=== PATIENT | female | born 1990 | race African-American/Black ===

== ENCOUNTER 2019-05-07 06:18 | Inpatient (IN) ==
[2019-05-07 06:40] VITALS: BMI 34.0
[2019-05-07] MEDS ORDERED: NS 1000 ML 1,000 ML ONE (07:05)
[2019-05-07] MEDS ORDERED: ANCEF VIAL 1 GRAM ONE (07:08)
[2019-05-07] MEDS ORDERED: NS 100 ML IV + SPIKE MINIBAG* 100 ML IV ONE (07:08)
[2019-05-07] MEDS ORDERED: LR 1000 ML IV 1,000 ML IV ONE (07:26)
[2019-05-07] MEDS ORDERED: D5 1/2 NS 1L W PITOCIN 20 UNITS/L 20 UNITS/1,000 ML BAG IV ONE (07:27)
[2019-05-07] MEDS ORDERED: DILAUDID INJ ONE (07:27)
[2019-05-07] MEDS ORDERED: ANCEF VIAL 1 GRAM IVP ONE (07:35)
[2019-05-07 07:37] LABS: BASOPHILS # (AUTO) 0.1 X10^3/uL (0.0-0.1); BASOPHILS % (AUTO) 0.6 % (0.2-1.0); EOSINOPHILS % (AUTO) 0.1 % (0.9-2.9); HEMATOCRIT 40.2 % (36.0-47.0); HEMOGLOBIN 13.9 g/dL (12.0-16.0); LYMPHOCYTES # (AUTO) 1.1 X10^3/uL (1.3-2.9); LYMPHOCYTES % (AUTO) 9.6 % (21.0-51.0); MEAN CORPUSCULAR HEMOGLOBIN 27.5 pg (27.0-34.0); MEAN CORPUSCULAR HGB CONC 34.7 g/dL (33.0-35.0); MEAN CORPUSCULAR VOLUME 79.3 fL (80.0-100.0); MEAN PLATELET VOLUME 8.7 fL (7.4-11.0); MONOCYTES # (AUTO) 1.1 x10^3/uL (0.3-0.8); MONOCYTES % (AUTO) 9.8 % (0.0-13.0); NEUTROPHILS # (AUTO) 9.1 x10^3/uL (2.2-4.8); NEUTROPHILS % (AUTO) 79.9 % (42.0-75.0); PLATELET COUNT 158 X10^3/uL (150.0-450.0); RED BLOOD COUNT 5.07 X10^6/uL (3.5-5.4); RED CELL DISTRIBUTION WIDTH 14.8 % (11.6-16.5); WHITE BLOOD COUNT 11.3 X10^3/uL (3.6-10.0)
[2019-05-07] MEDS ORDERED: XYLOCAINE 1 % (PLAIN) ONE (07:48)
[2019-05-07 07:51] LABS: ALANINE AMINOTRANSFERASE 9 Units/L (12-78); ALBUMIN 2.6 g/dL (3.4-5.0); ALKALINE PHOSPHATASE 191 Units/L (46-116); ASPARTATE AMINO TRANSFERASE 21 Units/L (15-37); BLOOD UREA NITROGEN 4 mg/dL (7-18); CALCIUM 9.3 mg/dL (8.5-10.1); CARBON DIOXIDE 19.2 mmol/L (21-32); CHLORIDE 102 mmol/L (98-107); COR CA(FOR HYPOALB) 10.4 mg/dL (8.5-10.1); CREATININE 0.61 mg/dL (0.55-1.02); SODIUM 136 mmol/L (136-145); TOTAL PROTEIN 8.2 g/dL (6.4-8.2); eGFR NON BLACK RACES > 60 (>60)
[2019-05-07 08:52] LABS: BILIRUBIN,URINE NEGATIVE (NEGATIVE); BLOOD/HEMOGLOBIN,URINE 1+ (NEGATIVE); GLUCOSE, URINE NEGATIVE (NEGATIVE); KETONES,URINE 4+ (NEGATIVE); LEUKOCYTE ESTERASE ,URINE NEGATIVE (NEGATIVE); NITRITES,URINE NEGATIVE (NEGATIVE); PH,URINE 6.5 (5.0 - 8.0); PROTEIN,URINE NEGATIVE (NEGATIVE); UROBILINOGEN,URINE NORMAL (NORMAL)
[2019-05-07 09:03] LABS: APPEARANCE,URINE CLEAR (CLEAR); COLOR,URINE YELLOW (YELLOW)
[2019-05-07 09:04] LABS: BACTERIA,URINE NEGATIVE /HPF (NEGATIVE); SQUAMOUS EPITHELIAL CELL,UR FEW /HPF (NEGATIVE)
[2019-05-07] MEDS ORDERED: ZOFRAN INJ 4 MG VIAL IVP PRN ×2 (09:23→09:38)
[2019-05-07] MEDS ORDERED: REGLAN INJ 10 MG VIAL IVP PRN ×2 (09:23→09:38)
[2019-05-07] MEDS ORDERED: PHENERGAN INJ 25 MG IM PRN (09:23)
[2019-05-07] MEDS ORDERED: BENADRYL INJ 50 MG VIAL IVP PRN ×2 (09:23→09:38)
[2019-05-07] MEDS ORDERED: ADACEL or BOOSTRIX TDaP VACCINE IM ONE ×2 (09:38→13:59)
[2019-05-07] MEDS ORDERED: MYLICON TAB 80 MG CHEW PO PRN (09:38)
[2019-05-07] MEDS ORDERED: NARCAN INJ IVP PRN (09:38)
[2019-05-07] MEDS ORDERED: PERCOCET TAB 5/325 MG PO PRN (09:38)
[2019-05-07] MEDS ORDERED: TORADOL 30 MG VIAL IVP PRN (09:38)
[2019-05-07] MEDS ORDERED: D5 1/2 NS 1000 ML 1,000 ML with PITOCIN 20 UNITS IV SCH ×2 (10:00)
[2019-05-07] MEDS: BACTROBAN TOPICAL OINT TOP SCH ×2 (13:56→21:55)
[2019-05-07] MEDS ORDERED: DIPRIVAN VIAL ONE (15:14)
[2019-05-07] MEDS ORDERED: EPHEDRINE SULFATE INJ ONE (15:14)
[2019-05-07] MEDS ORDERED: ZOFRAN INJ 4 MG VIAL ONE (15:14)
[2019-05-07] MEDS ORDERED: NEO-SYNEPHRINE INJ ONE (15:14)
[2019-05-07] MEDS ORDERED: PITOCIN ONE (15:14)
[2019-05-07] MEDS: ZANTAC PO SCH (20:42)
[2019-05-07] MEDS: BACTRIM DS TAB PO SCH (20:42)
[2019-05-08 05:16] LABS: HEMATOCRIT 34.9 % (36.0-47.0)
[2019-05-08] MEDS: BACTROBAN TOPICAL OINT TOP SCH (07:01)
[2019-05-08] MEDS ORDERED: MOTRIN TAB 800 MG PO PRN (07:38)
[2019-05-08] MEDS ORDERED: PERCOCET TAB 5/325 MG PO PRN (07:38)
[2019-05-08] MEDS: ZANTAC PO SCH (08:07)
[2019-05-08] MEDS: BACTRIM DS TAB PO SCH (08:07)
[2019-05-08] MEDS ORDERED: PRENATAL PLUS PO SCH (09:00)
[2019-05-08] MEDS ORDERED: COLACE CAP 100 MG PO SCH (09:00)
[2019-05-08 13:09] VITALS: BP 122/82
[2019-05-08] MEDS ORDERED: BACTROBAN TOPICAL OINT TOP SCH (14:00)
== END 2019-05-08 14:45 | disposition home or self-care (01) | DRG 788 ==
LOC: ER 06:20 → LD 07:09 → MED/SURG 10:10
PROVIDERS: ADMIT Specialist; ATTEND Specialist
DX: O98.311 Other infections with a predominantly sexual mode of transmission complicating pregnancy, first trimester; Z23 Encounter for immunization; Z3A.39 39 weeks gestation of pregnancy; Z37.0 Single live birth; O47.1 False labor at or after 37 completed weeks of gestation; B96.20 Unspecified Escherichia coli [E. coli] as the cause of diseases classified elsewhere; O26.891 Other specified pregnancy related conditions, first trimester; O34.211 Maternal care for low transverse scar from previous cesarean delivery; N85.8 Other specified noninflammatory disorders of uterus; O23.43 Unspecified infection of urinary tract in pregnancy, third trimester
CPT/HCPCS: 36415; 80053; 81001; 85014; 85018; 85025; 86592; 86850; 86900; 86901; 87086; 87088; 87186; 90715; 96365; 96372; 96374; 99284; A4216; A4222; S0197; J0690; J1170; J2370; J2405; J2590; J2704; J3105; J3490; J7030; J7050; J7120